=== PATIENT | female | born 1995 | race African-American/Black ===

== ENCOUNTER 2019-09-09 01:21 | Emergency (ER) | payer OTHER ==
[~2019-09-09] VITALS: Ht 160 cm; Wt 46.0 kg
[2019-09-09] MEDS ORDERED: IV NORMAL SALINE 1,000ML 1,000 ML IV SCH (01:24)
[2019-09-09] MEDS ORDERED: FAMOTIDINE 20 MG/2 ML VIAL IVP ONE (01:30)
[2019-09-09] MEDS ORDERED: PROCHLORPERAZINE 10 MG/2 ML VIAL. IV ONE (01:30)
--- NOTE | 2019-09-09 01:39 | PHYS DOC ---
Past History Past Medical History: No Pertinent History Past Surgical History: No Surgical History Smoking: Less than 1pk/day Alcohol Use: Rarely Drug Use: Marijuana General Adult EDM: Chief Complaint: VOMITING IN HPI: HPI: Patient is a 24 year old female who presents for evaluation of repeated episodes of vomiting over the past 24 to 48 hours. Patient states she had a positive home test. She states that she is working to get established with an TITLE CHECKER and call them to discuss her case. She states advised her to go to the hospital. Patient is a 1 para 0. Patient's last menstrual period was about 2 months ago. Patient has some minimal cramping but no vaginal bleeding or discharge. Patient called EMS and arrived here for evaluation Review of Systems: Review of Systems: Constitutional: Denies fever or chills Eyes: Denies change in visual acuity HENT: Denies nasal congestion or sore throat Respiratory: Denies cough or shortness of breath Cardiovascular: Denies chest pain or edema GI: Denies abdominal pain, recurrent nausea and vomiting, no bloody stools or diarrhea : Denies dysuria Musculoskeletal: Denies back pain or joint pain Integument: Denies rash Neurologic: Denies headache, focal weakness or sensory changes Endocrine: Denies polyuria or polydipsia Lymphatic: Denies swollen glands Psychiatric: Denies depression or anxiety Heart Score: Risk Factors: Risk Factors: DM, Current or recent (<one month) smoker, HTN, HLP, family history of CAD, obesity. Risk Scores: Score 0 - 3: 2.5% MACE over next 6 weeks - Discharge Home Score 4 - 6: 20.3% MACE over next 6 weeks - Admit for Clinical Observation Score 7 - 10: 72.7% MACE over next 6 weeks - Early Invasive Strategies Current Medications: Current Meds: Current Medications Medications (Trade) Dose Ordered Sig/Breezy Start Time Stop Time Status Last Admin Dose Admin Famotidine (Pepcid Vial) 20 mg 1X ONCE 09/09/19 01:30 09/09/19 01:31 UNV Prochlorperazine Edisylate (Compazine) 10 mg 1X ONCE 09/09/19 01:30 09/09/19 01:31 UNV Sodium Chloride 1,000 ml @ 1,000 mls/hr Q1H 09/09/19 01:24 09/09/19 02:23 UNV Physical Exam: PE: Constitutional: Well developed, well nourished, mild acute distress, non-toxic appearance. [] HENT: Normocephalic, atraumatic, bilateral external ears normal, oropharynx moist, no oral exudates, nose normal. [] Eyes: PERRL, EOMI, conjunctiva normal, no discharge. [] Neck: Normal range of motion, no tenderness, supple, no stridor. [] Cardiovascular:Heart rate regular rhythm, no murmur [] Lungs & Thorax: Bilateral breath sounds clear to auscultation [] Abdomen: Bowel sounds normal, soft, no tenderness, no masses [] Skin: Warm, dry, no erythema, no rash. [] Back: No tenderness. [] Extremities: No tenderness, no cyanosis, no clubbing, ROM intact, no edema. [] Neurologic: Alert and oriented, normal motor function, normal sensory function, no focal deficits noted. [] Psychologic: Affect normal, judgement normal, mood normal. [] Current Patient Data: Labs: Laboratory Tests Test 09/09/19 01:22 09/09/19 01:40 Urine Collection Type Unknown Urine Color Yellow Urine Clarity Clear Urine pH 5.5 Urine Specific Seymour >=1.030 Urine Protein 30 mg/dl Urine Glucose (UA) Neg mg/dL Urine Ketones (Stick) >=160 mg/dL Urine Blood Neg Urine Nitrite Neg Urine Bilirubin Neg Urine Urobilinogen Dipstick 0.2 mg/dL Urine Leukocyte Esterase Neg Urine RBC 0 /HPF Urine WBC Occ /HPF Urine Squamous Epithelial Cells Many /LPF Urine Bacteria Few /HPF White Blood Count 8.7 x10^3/uL Red Blood Count 4.51 x10^6/uL Hemoglobin 13.5 g/dL Hematocrit 40.5 % Mean Corpuscular Volume 90 fL Mean Corpuscular Hemoglobin 30 pg Mean Corpuscular Hemoglobin Concent 33 g/dL Red Cell Distribution Width 12.7 % Platelet Count 277 x10^3/uL Neutrophils (%) (Auto) 91 % Lymphocytes (%) (Auto) 6 % Monocytes (%) (Auto) 3 % Eosinophils (%) (Auto) 0 % Basophils (%) (Auto) 0 % Neutrophils # (Auto) 7.8 x10^3uL Lymphocytes # (Auto) 0.6 x10^3/uL Monocytes # (Auto) 0.3 x10^3/uL Eosinophils # (Auto) 0.0 x10^3/uL Basophils # (Auto) 0.0 x10^3/uL Maternal Serum HCG Beta Subunit [id number] mIU/mL Sodium Level 137 mmol/L Potassium Level 3.7 mmol/L Chloride Level 99 mmol/L Carbon Dioxide Level 21 mmol/L Anion Gap 17 Blood Urea Nitrogen 8 mg/dL Creatinine 0.7 mg/dL Estimated GFR (Cockcroft-Gault) 126.6 BUN/Creatinine Ratio 11 Glucose Level 105 mg/dL Calcium Level 9.6 mg/dL Total Bilirubin 0.4 mg/dL Aspartate Amino Transf (AST/SGOT) 14 U/L Alanine Aminotransferase (ALT/SGPT) 18 U/L Alkaline Phosphatase 76 U/L Total Protein 7.8 g/dL Albumin 4.2 g/dL Albumin/Globulin Ratio 1.2 Current Medications Medications (Trade) Dose Ordered Sig/Breezy Route PRN Reason Start Time Stop Time Status Last Admin Dose Admin Sodium Chloride 1,000 ml @ 1,000 mls/hr Q1H IV 09/09/19 01:24 09/09/19 02:23 DC 09/09/19 01:44 Famotidine (Pepcid Vial) 20 mg 1X ONCE IVP 09/09/19 01:30 09/09/19 02:03 DC 09/09/19 01:47 Prochlorperazine Edisylate (Compazine) 10 mg 1X ONCE IV 09/09/19 01:30 09/09/19 02:03 DC 09/09/19 01:46 Sodium Chloride 1,000 ml @ 1,000 mls/hr 1X ONCE IV 09/09/19 02:15 09/09/19 03:14 09/09/19 02:22 EKG: EKG: [] Radiology/Procedures: Radiology/Procedures: [] Course & Med Decision Making: Course & Med Decision Making Pertinent Labs and Imaging studies reviewed. (See chart for details) [] Dragon Disclaimer: Renetta Disclaimer: This electronic medical record was generated, in whole or in part, using a voice recognition dictation system. 0240 stable, feeling much better at this time. Patient able to tolerate p.o. fluids before discharge. Detailed follow-up instructions given. She will call and see her TITLE CHECKER right away and follow-up. Dehydration noted but no indication for admission at this time. Patient given 2 L of IV fluids prior to discharge Departure Departure: Impression: Primary Impression: Hyperemesis gravidarum Additional Impression: Dehydration Disposition: 01 HOME/RESIDENCE PRIOR TO ADM Condition: STABLE Referrals: PCP,NO (PCP) Patient Instructions: Diet - Hyperemesis Gravidarum, Hyperemesis Gravidarum Additional Instructions: Drink any fluids, rest, use soda crackers or other things when you are feeling nauseated. Call and see your TITLE CHECKER right away in follow-up. Take the nausea medicine and vitamins as directed Scripts Promethazine Hcl (PROMETHAZINE HCL) 12.5 Mg Tablet 1 TAB PO Q6-8HRS for vomiting in for 5 Days, #20 TAB 0 Refills Prov: MONALISA ZAZUETA DO 09/09/19 Pnv Cmb#95/Ferrous Fumarate/Fa ( TABLET) 1 Each Tablet 1 TAB PO DAILY for vomiting, #30 TAB 0 Refills Prov: MONALISA ZAZUETA DO 09/09/19 Justification of Admission: Justification of Admission: Justification of Admission Dx: N/A MONALISA ZAZUETA DO Sep 09, 2019 01:39
[2019-09-09 01:57] LABS: BACTERIA,URINE FEW /HPF (0-FEW); BILIRUBIN,URINE NEG (NEG); CLARITY,URINE CLEAR; COLOR,URINE YELLOW; GLUCOSE,URINE NEG (NEG); NITRITE,URINE NEG (NEG); RBC,URINE 0 /HPF (0-2); SQUAMOUS EPITHELIAL CELL,UR MANY /LPF; UROBILINOGEN,URINE 0.2 mg/dL (0.2 mg/dL); WBC,URINE OCC /HPF (0-4)
[2019-09-09 01:58] LABS: BASO % 0 % (0-3); EOS % 0 % (0-3); HEMATOCRIT 40.5 % (36.0-47.0); HEMOGLOBIN 13.5 g/dL (12.0-15.5); LYMPH # 0.6 x10^3/uL (1.0-4.8); LYMPH % 6 % (24-48); MEAN CORPUSCULAR HEMOGLOBIN 30 pg (25-35); MEAN CORPUSCULAR HGB CONC 33 g/dL (31-37); MEAN CORPUSCULAR VOLUME 90 fL (79-100); MONO # 0.3 x10^3/uL (0.0-1.1); MONO % 3 % (0-9); NEUT # 7.8 x10^3uL (1.8-7.7); NEUT % 91 % (31-73); PLATELET COUNT 277 x10^3/uL (140-400); RED BLOOD COUNT 4.51 x10^6/uL (3.50-5.40); RED CELL DISTRIBUTION WIDTH 12.7 % (11.5-14.5); WHITE BLOOD COUNT 8.7 x10^3/uL (4.0-11.0)
[2019-09-09 02:09] LABS: CALCIUM 9.6 mg/dL (8.5-10.1); CREATININE 0.7 mg/dL (0.6-1.0); GFR 126.6; POTASSIUM 3.7 mmol/L (3.5-5.1)
[2019-09-09 02:14] LABS: ALBUMIN 4.2 g/dL (3.4-5.0); ALBUMIN/GLOBULIN RATIO 1.2 (1.0-1.7); TOTAL BILIRUBIN 0.4 mg/dL (0.2-1.0); TOTAL PROTEIN 7.8 g/dL (6.4-8.2)
[2019-09-09] MEDS ORDERED: IV NORMAL SALINE 1,000ML 1,000 ML IV ONE (02:15)
[2019-09-09] MEDS ORDERED: PROM12.58 PO (02:44)
[2019-09-09] MEDS ORDERED: PNV1TABL25 PO (02:44)
[2019-09-09 03:00] VITALS: BP 131/82
== END 2019-09-09 03:00 | disposition home or self-care (01) ==
LOC: ER 01:21
DX: O21.0 Mild hyperemesis gravidarum (principal); E86.0 Dehydration; Z3A.00 Weeks of gestation of pregnancy not specified
CPT/HCPCS: 36415; 80053; 81001; 84702; 85025; 96361; 96374; 96375; 99284; J0780; J3490; J7030

== ENCOUNTER 2019-09-16 11:01 | Observation (INO) | payer OTHER ==
[~2019-09-16] VITALS: Ht 160 cm; Wt 43.4 kg
[~2019-09-16 11:01] MED LIST: PNV1TABL25 PO; PROM12.58 PO
[2019-09-16] MEDS ORDERED: ONDANSETRON PF 4 MG/2 ML VIAL. ONE (11:20)
[2019-09-16] MEDS ORDERED: IV NORMAL SALINE 1,000ML 1,000 ML IV ONE (11:30)
[2019-09-16] MEDS ORDERED: ONDANSETRON PF 4 MG/2 ML VIAL. IVP ONE (11:30)
[2019-09-16 11:49] LABS: BASO % 0 % (0-3); EOS % 0 % (0-3); HEMATOCRIT 44.1 % (36.0-47.0); HEMOGLOBIN 14.8 g/dL (12.0-15.5); LYMPH # 2.2 x10^3/uL (1.0-4.8); LYMPH % 24 % (24-48); MEAN CORPUSCULAR HEMOGLOBIN 30 pg (25-35); MEAN CORPUSCULAR HGB CONC 33 g/dL (31-37); MEAN CORPUSCULAR VOLUME 88 fL (79-100); MONO # 0.8 x10^3/uL (0.0-1.1); MONO % 9 % (0-9); NEUT # 6.1 x10^3uL (1.8-7.7); NEUT % 67 % (31-73); PLATELET COUNT 342 x10^3/uL (140-400); RED BLOOD COUNT 4.99 x10^6/uL (3.50-5.40); RED CELL DISTRIBUTION WIDTH 12.8 % (11.5-14.5); WHITE BLOOD COUNT 9.1 x10^3/uL (4.0-11.0)
[2019-09-16 12:02] LABS: ALBUMIN 4.5 g/dL (3.4-5.0); ALBUMIN/GLOBULIN RATIO 1.2 (1.0-1.7); CALCIUM 10.2 mg/dL (8.5-10.1); CREATININE 0.8 mg/dL (0.6-1.0); GFR 108.5; TOTAL BILIRUBIN 0.9 mg/dL (0.2-1.0); TOTAL PROTEIN 8.3 g/dL (6.4-8.2)
[2019-09-16 12:07] LABS: POTASSIUM 2.8 mmol/L (3.5-5.1)
[2019-09-16] MEDS ORDERED: POTASSIUM CL 40MEQ IN 0.9%NACL 1,000 ML IV ONE (12:15)
--- NOTE | 2019-09-16 12:19 | PHYS DOC ---
Past History Past Medical History: No Pertinent History Past Surgical History: No Surgical History Smoking: Less than 1pk/day Alcohol Use: None Drug Use: Marijuana General Adult EDM: Chief Complaint: NAUSEA/VOMITING/DIARRHEA HPI: HPI: 24-year-old female presents with nausea and vomiting. Patient is . She was seen in this emergency room about a week ago with similar complaint. She has not been into her [facility] yet. She was discharged with Compazine and has tried that, but is unable to keep it down. She presents today because she cannot even keep water down. She is feeling very fatigued and worn out. She denies vaginal discharge, bleeding, or cramping. Denies urinary symptoms. Denies fever or chills. Review of Systems: Review of Systems: Constitutional: Denies fever or chills Eyes: Denies change in visual acuity HENT: Denies nasal congestion or sore throat Respiratory: Denies cough or shortness of breath Cardiovascular: Denies chest pain or edema GI: nausea, vomiting. Denies abdominal pain, bloody stools or diarrhea : Denies dysuria Musculoskeletal: Denies back pain or joint pain Integument: Denies rash Neurologic: Denies headache, focal weakness or sensory changes Endocrine: Denies polyuria or polydipsia Lymphatic: Denies swollen glands Psychiatric: Denies depression or anxiety Heart Score: Risk Factors: Risk Factors: DM, Current or recent (<one month) smoker, HTN, HLP, family history of CAD, obesity. Risk Scores: Score 0 - 3: 2.5% MACE over next 6 weeks - Discharge Home Score 4 - 6: 20.3% MACE over next 6 weeks - Admit for Clinical Observation Score 7 - 10: 72.7% MACE over next 6 weeks - Early Invasive Strategies Current Medications: Current Meds: Current Medications Medications (Trade) Dose Ordered Sig/Breezy Start Time Stop Time Status Last Admin Dose Admin Ondansetron HCl (Zofran) 4 mg 1X ONCE 09/16/19 11:30 09/16/19 11:31 DC 09/16/19 11:32 4 MG Sodium Chloride 1,000 ml @ 1,000 mls/hr 1X ONCE 09/16/19 11:30 09/16/19 12:29 09/16/19 11:32 1,000 MLS/HR Allergies: Allergies: Allergies Coded Allergies Type Severity Reaction Last Updated Verified No Known Drug Allergies 09/09/19 No Physical Exam: PE: Constitutional: Well developed, well nourished, no acute distress, non-toxic appearance. [] HENT: Normocephalic, atraumatic, bilateral external ears normal, oropharynx moist, no oral exudates, nose normal. [] Eyes: PERRLA, EOMI, conjunctiva normal, no discharge. [] Neck: Normal range of motion, no tenderness, supple, no stridor. [] Cardiovascular: Heart rate regular rhythm, no murmur [] Lungs & Thorax: Bilateral breath sounds clear to auscultation [] Abdomen: Bowel sounds normal, soft, no tenderness, no masses, no pulsatile masses. [] Skin: Warm, dry, no erythema, no rash. [] Back: No tenderness, no CVA tenderness. [] Extremities: No tenderness, no cyanosis, no clubbing, ROM intact, no edema. [] Neurologic: Alert and oriented X 3, normal motor function, normal sensory function, no focal deficits noted. [] Psychologic: Affect normal, judgement normal, mood normal. [] Current Patient Data: Labs: Laboratory Tests Test 09/16/19 11:27 White Blood Count 9.1 x10^3/uL (4.0-11.0) Red Blood Count 4.99 x10^6/uL (3.50-5.40) Hemoglobin 14.8 g/dL (12.0-15.5) Hematocrit 44.1 % (36.0-47.0) Mean Corpuscular Volume 88 fL (79-100) Mean Corpuscular Hemoglobin 30 pg (25-35) Mean Corpuscular Hemoglobin Concent 33 g/dL (31-37) Red Cell Distribution Width 12.8 % (11.5-14.5) Platelet Count 342 x10^3/uL (140-400) Neutrophils (%) (Auto) 67 % (31-73) Lymphocytes (%) (Auto) 24 % (24-48) Monocytes (%) (Auto) 9 % (0-9) Eosinophils (%) (Auto) 0 % (0-3) Basophils (%) (Auto) 0 % (0-3) Neutrophils # (Auto) 6.1 x10^3uL (1.8-7.7) Lymphocytes # (Auto) 2.2 x10^3/uL (1.0-4.8) Monocytes # (Auto) 0.8 x10^3/uL (0.0-1.1) Eosinophils # (Auto) 0.0 x10^3/uL (0.0-0.7) Basophils # (Auto) 0.0 x10^3/uL (0.0-0.2) Sodium Level 134 mmol/L (136-145) L Potassium Level 2.8 mmol/L (3.5-5.1) *L Chloride Level 93 mmol/L (98-107) L Carbon Dioxide Level 23 mmol/L (21-32) Anion Gap 18 (6-14) H Blood Urea Nitrogen 13 mg/dL (7-20) Creatinine 0.8 mg/dL (0.6-1.0) Estimated GFR (Cockcroft-Gault) 108.5 BUN/Creatinine Ratio 16 (6-20) Glucose Level 116 mg/dL (70-99) H Calcium Level 10.2 mg/dL (8.5-10.1) H Total Bilirubin 0.9 mg/dL (0.2-1.0) Aspartate Amino Transferase (AST) 14 U/L (15-37) L Alanine Aminotransferase (ALT) 16 U/L (14-59) Alkaline Phosphatase 74 U/L (46-116) Total Protein 8.3 g/dL (6.4-8.2) H Albumin 4.5 g/dL (3.4-5.0) Albumin/Globulin Ratio 1.2 (1.0-1.7) Vital Signs: Vital Signs Date Time Temp Pulse Resp B/P (MAP) Pulse Ox O2 Delivery O2 Flow Rate FiO2 09/16/19 11:11 97.2 84 24 135/86 (102) 99 EKG: EKG: [] Radiology/Procedures: Radiology/Procedures: [] Course & Med Decision Making: Course & Med Decision Making Pertinent Labs and Imaging studies reviewed. (See chart for details) The patient does appear clinically dehydrated and tired. We will rehydrate her with normal saline and I will give her 4 mg of Zofran. The patient's labs are significant for a potassium of 2.8. Given the patient's significant vomiting, I believe she will need to be given IV potassium. We will start that in the ED admit the patient to the hospital. She is in agreement with this plan. I spoke with Dr. Leong and he has accepted the patient for admission. [] Dragon Disclaimer: Dragguero Disclaimer: This electronic medical record was generated, in whole or in part, using a voice recognition dictation system. Departure Departure: Impression: Primary Impression: Hyperemesis gravidarum Additional Impressions: Hypokalemia due to excessive gastrointestinal loss of potassium Dehydration Disposition: HOME/RESIDENCE PRIOR TO ADM Condition: STABLE Referrals: DONAL LEONG MD (PCP) Justification of Admission: Justification of Admission: Justification of Admission Dx: Comment: Comments: Hypokalemia, hyperemesis gravidarum, dehydration FANTA MOORE DO Sep 16, 2019 12:19
[2019-09-16 12:20] LABS: BILIRUBIN,URINE NEG (NEG); CLARITY,URINE CLOUDY; COLOR,URINE YELLOW; GLUCOSE,URINE NEG (NEG)
[2019-09-16 12:21] LABS: BACTERIA,URINE 0 /HPF (0-FEW); NITRITE,URINE NEG (NEG); SQUAMOUS EPITHELIAL CELL,UR MANY /LPF; UROBILINOGEN,URINE 0.2 mg/dL (0.2 mg/dL)
[2019-09-16] MEDS ORDERED: diphenhydrAMINE 50 MG/ML VIAL IVP ONE (12:45)
--- NOTE | 2019-09-16 13:23 | RAD ---
EXAM: OBSTETRIC ULTRASOUND, <14 WEEKS. HISTORY: Vomiting in . COMPARISON: None. FINDINGS: Sonographic evaluation of the pelvis was performed transabdominally. The uterus is anteverted and measures 9.3 x 8.0 x 4.4 cm. There is a single intrauterine gestation measuring 10 weeks 2 days. heart rate is 182 bpm. A yolk sac is visualized. The gestational sac is regular. There is no subchorionic collection. The right ovary measures 2.7 x 2.4 x 1.8 cm. The left ovary is not visualized. There is normal Doppler flow bilaterally. There is no adnexal mass. There is no significant free fluid. IMPRESSION: 1. Single intrauterine gestation measuring 10 weeks 2 days. heart rate 182 bpm. 2. The left ovary is not visualized currently. Electronically signed by: Alida Iqbal MD (09/16/2019 1:20 PM) [id number]
[2019-09-16] MEDS: ONDANSETRON PF 4 MG/2 ML VIAL. IVP PRN ×3 (13:24→21:58)
[2019-09-16] MEDS ORDERED: ONDANSETRON PF 4 MG/2 ML VIAL. IVP PRN (13:45)
[2019-09-16 13:49] VITALS: BP 111/68
[2019-09-16] MEDS ORDERED: IV NORMAL SALINE 1,000ML 1,000 ML IV SCH (14:00)
[2019-09-16] MEDS: POTASSIUM CHLORIDE 10MEQ 100 ML IV SCH ×4 (14:33→17:53)
[2019-09-16] MEDS ORDERED: IV NORMAL SALINE 1,000ML 1,000 ML IV PRN (16:45)
[2019-09-16 19:29] VITALS: BP 108/66
[2019-09-16 21:58] LABS: CALCIUM 8.6 mg/dL (8.5-10.1); CREATININE 0.4 mg/dL (0.6-1.0); GFR 241.5; POTASSIUM 4.1 mmol/L (3.5-5.1)
[2019-09-16 23:19] VITALS: BP 103/67
[2019-09-17] MEDS: ONDANSETRON PF 4 MG/2 ML VIAL. IVP PRN (03:53)
[2019-09-17] MEDS ORDERED: hydrOXYzine HCL 25 MG TABLET PO PRN (05:00)
[2019-09-17] MEDS ORDERED: PROCHLORPERAZINE 10 MG/2 ML VIAL. IV ONE (05:00)
[2019-09-17 06:17] LABS: CALCIUM 8.3 mg/dL (8.5-10.1); CREATININE 0.5 mg/dL (0.6-1.0); GFR 186.7; POTASSIUM 3.5 mmol/L (3.5-5.1)
[2019-09-17 08:33] VITALS: BP_SYST 102
[2019-09-17 10:15] VITALS: BP 107/63
[2019-09-17] MEDS ORDERED: ONDANSETRON ODT 4 MG TAB.RAPDIS PO PRN (11:30)
[2019-09-17] MEDS ORDERED: POTASSIUM CHLORIDE 10 MEQ TABLET.ER. PO ONE (11:30)
--- NOTE | 2019-09-17 11:57 | HP ---
ADMIT DATE: HISTORY OF PRESENT ILLNESS: This is a pleasant 24-year-old female who has been coming into the Emergency Room a couple of times. She is about 8 weeks and she has been having severe nausea and vomiting, uncontrolled. She had been seen in the Emergency Room previously and was given promethazine, but apparently that did not help her keep anything down. She became increasingly dehydrated. We will try to get her transferred and the other hospitals would not accept her unless she was over 20 weeks for some reason. In any case, the young lady was dehydrated. She was unable to hold fluids down, she needed IV fluids as well as some type of antiemetics and some other evaluation to keep this situation under control. DICTATION ENDS HERE DONAL RESENDIZ MD DR: MADISON/danielito JOB#: [id number] / [id number]
--- NOTE | 2019-09-17 12:05 | HP ---
ADMIT DATE: HISTORY OF PRESENT ILLNESS: A 24-year-old female came in. She has been in the Emergency Room a couple times with nausea, vomiting and unable to keep fluids down at all. The patient in turn was admitted for IV fluids and further evaluation of her emesis. We tried to transfer her, but other hospitals would not accept her since she was under 20 weeks for some reason. In any case, she denied any cramping or abdominal pain. An ultrasound was performed in the Emergency Room and found a viable fetus and good heart tones there. The patient was admitted. She was extremely worn out, fatigued, dehydrated with the situation of her having problems with keeping any fluids down whatsoever. PAST MEDICAL HISTORY: She has had a history of hypokalemia and some hyperemesis but other than that unremarkable. ALLERGIES: She has no known drug allergies. MEDICATIONS: Her home medications, actually she was not on any vitamins at that time, however, she was on vitamins says here. In any case, she has not seen an cell reliner as yet and we really recommended her to get in as soon as possible there. FAMILY HISTORY: Noncontributory. SOCIAL HISTORY: Unfortunately, she smokes less than a pack a day, but encouraged to stop smoking. No drugs or hard drug use. ALLERGIES: No known drug allergies. REVIEW OF SYSTEMS: Except for the nausea and vomiting, denies any shortness of breath, chest pain, headaches, visual changes, blurred vision, double vision, cramping, bleeding or otherwise. PHYSICAL EXAMINATION: GENERAL: This is a very pleasant young lady. VITAL SIGNS: Blood pressure 107/63, respiratory rate 18, pulse initially in the 80s. She was afebrile, good oxygen saturation. HEENT: Head atraumatic, normocephalic. Mouth and throat: Dry mucous membranes. NECK: Supple. LUNGS: Diminished, but clear. CARDIOVASCULAR: Regular sinus rhythm. ABDOMEN: Soft, nontender per se, just generalized tenderness. EXTREMITIES: No clubbing, cyanosis, or edema. PELVIS: No vaginal exam was performed on the young lady since we did an abdominal ultrasound. NEUROLOGIC: Otherwise neurologically intact. PLAN: heart rate was 182 and as noted the patient will be admitted for hyperemesis, intrauterine , dehydration, hypokalemia was another important factor here. Her potassium was only initially 2.8, so it is a critical value. Her blood sugar was slightly elevated. Calcium was also elevated, but then went from 10.2 down to 8.3. Albumin was good. BUN and creatinine was slightly elevated at 13 and 0.8. Placed on electrolyte replacement protocol and we will make further evaluation on her as indicated, trying to control her hyperemesis and get her in to cell reliner. DONAL RESENDIZ MD DR: MADISON/danielito JOB#: [id number] / [id number]
[2019-09-17] MEDS ORDERED: ONDA4TAB12 PO (13:38)
== END 2019-09-17 13:56 | disposition home or self-care (01) ==
LOC: ER 11:01 → 1 SOUTH 12:39 → INTOOBSV 12:39
PROVIDERS: ADMIT Family Medicine; ATTEND Family Medicine
DX: O21.1 Hyperemesis gravidarum with metabolic disturbance (principal); O26.891 Other specified pregnancy related conditions, first trimester; E86.0 Dehydration; O24.911 Unspecified diabetes mellitus in pregnancy, first trimester; O16.1 Unspecified maternal hypertension, first trimester; O99.331 Smoking (tobacco) complicating pregnancy, first trimester; E78.5 Hyperlipidemia, unspecified; F17.210 Nicotine dependence, cigarettes, uncomplicated; Z3A.10 10 weeks gestation of pregnancy; Z79.899 Other long term (current) drug therapy
CPT/HCPCS: 36415; 76801; 80048; 80053; 81001; 83735; 85025; 87086; 96361; 96365; 96366; 96375; 96376; 99284; G0378; J1200; J2405; J3480; J7030; Q0162; 96374; G0379; 99285-25

== ENCOUNTER 2019-09-22 18:17 | Emergency (ER) | payer OTHER ==
[~2019-09-22] VITALS: Ht 160 cm; Wt 40.6 kg
[~2019-09-22 18:17] MED LIST changes: +ONDA4TAB12 PO
[2019-09-22] MEDS ORDERED: diphenhydrAMINE 50 MG/ML VIAL IVP ONE (18:45)
[2019-09-22] MEDS ORDERED: ONDANSETRON PF 4 MG/2 ML VIAL. IVP ONE (18:45)
[2019-09-22] MEDS ORDERED: IV NORMAL SALINE 1,000ML 1,000 ML IV ONE (18:45)
--- NOTE | 2019-09-22 18:58 | PHYS DOC ---
Past History Past Medical History: Bipolar, Depression Past Surgical History: No Surgical History Smoking: Less than 1pk/day Alcohol Use: None Drug Use: Marijuana General Adult EDM: Chief Complaint: NAUSEA/VOMITING/DIARRHEA HPI: HPI: 24-year-old female returns the emergency room with nausea and vomiting. The patient is 9 weeks and she presents again for uncontrolled nausea and vomiting. This is her third visit in the last couple weeks. Patient states that she is taking Zofran that I prescribed, but it does not seem to be working. She has not been able to eat very much at all. She is down 2 kg from her last visit. The patient is already underweight. She is really frustrated at the inability to control her symptoms. She has tried liquids, crackers, bread, noodles. Nothing stays down very well. She denies fever chills. Review of Systems: Review of Systems: Constitutional: Denies fever or chills Eyes: Denies change in visual acuity HENT: Denies nasal congestion or sore throat Respiratory: Denies cough or shortness of breath Cardiovascular: Denies chest pain or edema GI: nausea, vomiting. Denies abdominal pain, bloody stools or diarrhea : Denies dysuria Musculoskeletal: Denies back pain or joint pain Integument: Denies rash Neurologic: Denies headache, focal weakness or sensory changes Endocrine: Denies polyuria or polydipsia Lymphatic: Denies swollen glands Psychiatric: Denies depression or anxiety Heart Score: Risk Factors: Risk Factors: DM, Current or recent (<one month) smoker, HTN, HLP, family history of CAD, obesity. Risk Scores: Score 0 - 3: 2.5% MACE over next 6 weeks - Discharge Home Score 4 - 6: 20.3% MACE over next 6 weeks - Admit for Clinical Observation Score 7 - 10: 72.7% MACE over next 6 weeks - Early Invasive Strategies Current Medications: Current Meds: Current Medications Medications (Trade) Dose Ordered Sig/Breezy Start Time Stop Time Status Last Admin Dose Admin Dextrose/Sodium Chloride 1,000 ml @ 1,000 mls/hr 1X ONCE 09/22/19 19:00 09/22/19 19:59 Diphenhydramine HCl (Benadryl) 25 mg 1X ONCE 09/22/19 18:45 09/22/19 18:46 DC Ondansetron HCl (Zofran) 4 mg 1X ONCE 09/22/19 18:45 09/22/19 18:46 DC Sodium Chloride 1,000 ml @ 1,000 mls/hr 1X ONCE 09/22/19 18:45 09/22/19 18:49 DC Allergies: Allergies: Allergies Coded Allergies Type Severity Reaction Last Updated Verified No Known Drug Allergies 09/22/19 No Physical Exam: PE: Constitutional: Well developed, underweight, no acute distress, non-toxic appearance. [] HENT: Normocephalic, atraumatic, bilateral external ears normal, oropharynx moist, no oral exudates, nose normal. [] Eyes: PERRLA, EOMI, conjunctiva normal, no discharge. [] Neck: Normal range of motion, no tenderness, supple, no stridor. [] Cardiovascular: Heart rate regular rhythm, no murmur [] Lungs & Thorax: Bilateral breath sounds clear to auscultation [] Abdomen: Bowel sounds normal, soft, no tenderness, no masses, no pulsatile masses. [] Skin: Warm, dry, no erythema, no rash. [] Back: No tenderness, no CVA tenderness. [] Extremities: No tenderness, no cyanosis, no clubbing, ROM intact, no edema. [] Neurologic: Alert and oriented X 3, normal motor function, normal sensory function, no focal deficits noted. [] Psychologic: Affect normal, judgement normal, mood normal. [] Current Patient Data: Vital Signs: Vital Signs Date Time Temp Pulse Resp B/P (MAP) Pulse Ox O2 Delivery O2 Flow Rate FiO2 09/22/19 18:20 98.2 103 18 120/96 (104) 99 Room Air EKG: EKG: [] Radiology/Procedures: Radiology/Procedures: [] Course & Med Decision Making: Course & Med Decision Making Pertinent Labs and Imaging studies reviewed. (See chart for details) The patient was given 4 mg of Zofran, 25 mg of Benadryl IV and 2 L of D5 NS. I gave her a caloric agent because she needs the calories in addition to the hydration. She has had no further vomiting. We are going to do a p.o. challenge of both liquids and solid to see if this combination is effective for her so she can eat. Her labs are unremarkable. This was effective for the patient. She has an appointment with her OB in a couple of days. She is stable for discharge at this time. [] Dragon Disclaimer: Dragon Disclaimer: This electronic medical record was generated, in whole or in part, using a voice recognition dictation system. Departure Departure: Impression: Primary Impression: Hyperemesis gravidarum Disposition: HOME/RESIDENCE PRIOR TO ADM Condition: STABLE Referrals: DONAL RESENDIZ MD (PCP) Scripts Cephalexin (KEFLEX) 500 Mg Capsule 1 CAP PO TID for UTI for 3 Days, #9 CAP 0 Refills Prov: FANTA MOORE DO 09/22/19 Justification of Admission: Justification of Admission: Justification of Admission Dx: N/A FANTA MOORE DO Sep 22, 2019 18:58
[2019-09-22] MEDS ORDERED: IV DEXTROSE 5% - 0.9 % NACL 1,000 ML IV ONE ×2 (19:00→21:15)
[2019-09-22 19:22] LABS: BASO % 0 % (0-3); EOS % 0 % (0-3); HEMATOCRIT 46.2 % (36.0-47.0); HEMOGLOBIN 15.7 g/dL (12.0-15.5); LYMPH # 1.7 x10^3/uL (1.0-4.8); LYMPH % 20 % (24-48); MEAN CORPUSCULAR HEMOGLOBIN 30 pg (25-35); MEAN CORPUSCULAR HGB CONC 34 g/dL (31-37); MEAN CORPUSCULAR VOLUME 88 fL (79-100); MONO # 0.7 x10^3/uL (0.0-1.1); MONO % 9 % (0-9); NEUT % 71 % (31-73); PLATELET COUNT 318 x10^3/uL (140-400); RED BLOOD COUNT 5.27 x10^6/uL (3.50-5.40); RED CELL DISTRIBUTION WIDTH 12.4 % (11.5-14.5); WHITE BLOOD COUNT 8.4 x10^3/uL (4.0-11.0)
[2019-09-22 19:27] LABS: CREATININE 0.5 mg/dL (0.6-1.0); GFR 186.7; POTASSIUM 3.1 mmol/L (3.5-5.1)
[2019-09-22 19:33] LABS: ALBUMIN 4.2 g/dL (3.4-5.0); ALBUMIN/GLOBULIN RATIO 1.2 (1.0-1.7); TOTAL BILIRUBIN 0.8 mg/dL (0.2-1.0); TOTAL PROTEIN 7.6 g/dL (6.4-8.2)
[2019-09-22 19:34] LABS: CLARITY,URINE CLOUDY; COLOR,URINE AMBER
[2019-09-22 19:35] LABS: BILIRUBIN,URINE NEG (NEG); GLUCOSE,URINE NEG (NEG)
[2019-09-22 19:36] LABS: BACTERIA,URINE FEW /HPF (0-FEW); NITRITE,URINE POS (NEG); RBC,URINE OCC /HPF (0-2); SQUAMOUS EPITHELIAL CELL,UR MOD /LPF
[2019-09-22] MEDS ORDERED: cefTRIAXone SODIUM 1 GM VIAL ONE (20:01)
[2019-09-22] MEDS ORDERED: IV NORMAL SALINE 50ML 50 ML ONE (20:01)
[2019-09-22] MEDS ORDERED: FAMOTIDINE 20 MG/2 ML VIAL IVP ONE (22:00)
[2019-09-22] MEDS ORDERED: CEPH-264 PO (22:39)
[2019-09-22 23:00] VITALS: BP 119/75
== END 2019-09-22 23:00 | disposition home or self-care (01) ==
LOC: ER 18:17
DX: O21.0 Mild hyperemesis gravidarum (principal); O99.331 Smoking (tobacco) complicating pregnancy, first trimester; Z3A.09 9 weeks gestation of pregnancy
CPT/HCPCS: 36415; 80053; 81001; 85025; 87086; 96361; 96365; 96375; 99285; J0696; J1200; J2405; J3490; J7042